=== PATIENT | female | born 1995 | race African-American/Black ===

== ENCOUNTER 2021-02-19 12:57 | Inpatient (IN) | payer MEDICAID ==
[~2021-02-19] VITALS: Ht 160 cm; Wt 65.3 kg
[2021-02-19] MEDS ORDERED: ACETAMINOPHEN 325MG TABLET PO STA (13:19)
[2021-02-19] MEDS ORDERED: SODIUM CHLORIDE 0.9% 1,000 ML IV ONE ×2 (13:30→16:45)
[2021-02-19 14:11] LABS: BASOPHILS % 0.2 % (0.0-2.0); EOSINOPHILS % 0.1 % (0.0-5.0); HEMATOCRIT. 26.4 % (36.0-48.0); HEMOGLOBIN. 8.6 g/dL (12.0-16.0); LYMPHOCYTES % 7.4 % (20.0-50.0); MEAN CORPUSCULAR HEMOGLOBIN 19.3 pg (28.0-32.0); MEAN CORPUSCULAR VOLUME 59.4 fL (81.0-99.0); MEAN PLATELET VOLUME 8.5 fl (7.4-10.4); NEUTROPHILS % 89.3 % (40.0-76.0); PLATELET 356 x1000/uL (130-400); RED BLOOD CELL COUNT 4.44 mill/uL (4.2-5.4); RED CELL DISTRIBUTION WIDTH 18.7 % (11.6-14.6)
[2021-02-19 14:19] LABS: CHLORIDE 107 mEq/L (98-107)
[2021-02-19 14:42] LABS: B-HCG QUANTITATIVE 22300 mIU/mL (<3)
[2021-02-19 14:55] LABS: PLATELET ESTIMATE NORMAL
[2021-02-19 15:45] LABS: CLARITY URINE CLOUDY (CLEAR); COLOR URINE RED (YELLOW); KETONES URINE TRACE (NEGATIVE); LEUKOCYTE ESTERASE URINE 1+ (NEGATIVE); NITRITE URINE NEGATIVE (NEGATIVE); OCCULT BLOOD URINE 3+ (NEGATIVE); PH URINE 5.5 (4.5-8.0); PROTEIN URINE 3+ (NEGATIVE); SPECIFIC GRAVITY URINE 1.034 (1.005-1.030); UROBILINOGEN URINE 0.2 E.U./dL (0.2-1.0)
[2021-02-19] MEDS ORDERED: ALBUMIN HUMAN 12.5G/250ML (5%) IV ONE (15:57)
[2021-02-19] MEDS ORDERED: LIDOCAINE HCL 1% 20ML VIAL (Pyxis) INJ ONE (16:08)
[2021-02-19] MEDS ORDERED: EPINEPHRINE 1:1000 1 MG/ML AMP ONE (16:08)
[2021-02-19] MEDS ORDERED: SODIUM CHLORIDE 0.9% 10ML VIAL ONE (16:16)
[2021-02-19] MEDS ORDERED: PHENYLEPHRINE HCL 10 MG/ML 1ML (IV VIAL) IV ONE (16:16)
[2021-02-19] MEDS ORDERED: MIDAZOLAM HCL 2 MG/2 ML VIAL ONE (16:16)
[2021-02-19] MEDS ORDERED: NEOSTIGMINE METHYLSULFATE 1MG/ML 10 ML VIAL ONE (16:16)
[2021-02-19] MEDS ORDERED: GLYCOPYRROLATE 0.2 MG/ML 2ML VIAL ONE (16:16)
[2021-02-19] MEDS ORDERED: FENTANYL CITRATE/PF 50MCG/ML 2ML VIAL ONE (16:16)
[2021-02-19] MEDS ORDERED: PROPOFOL 200MG/20ML VIAL IV ONE (16:16)
[2021-02-19] MEDS ORDERED: SUCCINYLCHOLINE CHLORIDE 200MG/10ML IV ONE (16:16)
[2021-02-19] MEDS ORDERED: ROCURONIUM BROMIDE 10MG/ML VIAL 5ML IV ONE (16:16)
[2021-02-19] MEDS ORDERED: METRONIDAZOLE 500 MG PREMIX 100 ML IV ONE (16:17)
[2021-02-19] MEDS ORDERED: EPHEDRINE SULFATE 50MG/ML VIAL ONE (16:17)
[2021-02-19] MEDS ORDERED: METOCLOPRAMIDE HCL 10MG/2ML VIAL ONE (16:17)
[2021-02-19] MEDS ORDERED: ONDANSETRON HCL 4MG/2ML INJ ONE (16:17)
[2021-02-19] MEDS ORDERED: ACETAMINOPHEN WITH CODEINE 300/30MG TABLET PO PRN (16:30)
[2021-02-19] MEDS ORDERED: IBUPROFEN 400MG TABLET PO PRN (16:30)
[2021-02-19] MEDS ORDERED: DIPHENHYDRAMINE 25MG CAPSULE PO PRN (16:30)
[2021-02-19] MEDS ORDERED: HYDROMORPHONE HCL/PF 2MG/ML CPJ IV PRN (16:45)
[2021-02-19] MEDS ORDERED: METHYLERGONOVINE MALEATE 0.2 MG/ML IM NR (16:45)
[2021-02-19] MEDS ORDERED: MEPERIDINE HCL/PF 25MG/ML CPJ IV PRN ×2 (16:45)
[2021-02-19] MEDS ORDERED: MORPHINE SULFATE 2 MG/ML CPJ (NOT FOR IM USE) IV PRN (16:45)
[2021-02-19] MEDS ORDERED: ONDANSETRON HCL 4MG/2ML INJ IV PRN (16:45)
[2021-02-19] MEDS ORDERED: DEXT 5%/LR + PITOCIN 20UNITS/L 1,000 ML IV SCH (17:00)
[2021-02-19 19:09] LABS: HEMATOCRIT 26.5 % (36.0-48.0); HEMOGLOBIN 8.7 g/dL (12.0-16.0); MEAN CORPUSCULAR HEMOGLOBIN 22.7 pg (28.0-32.0); MEAN CORPUSCULAR VOLUME 69.1 fL (81.0-99.0); PLATELET 217 x1000/uL (130-400); RED BLOOD CELL COUNT 3.83 mill/uL (4.2-5.4); RED CELL DISTRIBUTION WIDTH 29.6 % (11.6-14.6)
[2021-02-19 19:17] LABS: CHLORIDE 113 mEq/L (98-107)
[2021-02-19 20:00] VITALS: BP 112/70
[2021-02-19 20:55] VITALS: BP 112/70
[2021-02-19] MEDS: METHYLERGONOVINE MALEATE 0.2MG TABLET PO SCH (23:55)
[2021-02-19] MEDS: IBUPROFEN 800MG TABLET PO PRN (23:56)
[2021-02-20] VITALS: BP 110/65
[2021-02-20 00:48] LABS: HEMATOCRIT. 24.7 % (36.0-48.0); HEMOGLOBIN. 8.2 g/dL (12.0-16.0); MEAN CORPUSCULAR HEMOGLOBIN 22.6 pg (28.0-32.0); MEAN CORPUSCULAR VOLUME 68.1 fL (81.0-99.0); MEAN PLATELET VOLUME 8.8 fl (7.4-10.4); PLATELET 223 x1000/uL (130-400); RED BLOOD CELL COUNT 3.63 mill/uL (4.2-5.4); RED CELL DISTRIBUTION WIDTH 29.1 % (11.6-14.6)
[2021-02-20] MEDS ORDERED: POTASSIUM CHLORIDE 20MEQ TABLET SR PO NR (02:00)
[2021-02-20] MEDS ORDERED: DOLU50TA MT (03:54)
[2021-02-20] MEDS ORDERED: EMTR1TAB12 MT (03:54)
[2021-02-20 04:00] VITALS: BP 111/64
[2021-02-20 05:38] LABS: PLATELET ESTIMATE NORMAL
[2021-02-20 07:11] LABS: BASOPHILS % 0.1 % (0.0-2.0); EOSINOPHILS % 0.1 % (0.0-5.0); HEMATOCRIT. 21.2 % (36.0-48.0); HEMOGLOBIN. 7.2 g/dL (12.0-16.0); MEAN CORPUSCULAR HEMOGLOBIN 23.1 pg (28.0-32.0); MEAN CORPUSCULAR VOLUME 67.8 fL (81.0-99.0); MEAN PLATELET VOLUME 8.5 fl (7.4-10.4); MONOCYTES % 4.6 % (2.0-8.0); NEUTROPHILS % 87.2 % (40.0-76.0); PLATELET 183 x1000/uL (130-400); RED BLOOD CELL COUNT 3.13 mill/uL (4.2-5.4); RED CELL DISTRIBUTION WIDTH 28.6 % (11.6-14.6)
[2021-02-20] MEDS ORDERED: METH PO (07:26)
[2021-02-20] MEDS ORDERED: FERR325T23 PO (07:26)
[2021-02-20] MEDS ORDERED: ESTR-21 PO (07:26)
[2021-02-20] MEDS ORDERED: VIT1TABL PO (07:26)
[2021-02-20] MEDS ORDERED: IBUP-2030 PO (07:26)
[2021-02-20] MEDS ORDERED: METR375C2 MT (07:29)
[2021-02-20] MEDS ORDERED: FERROUS SULFATE 325MG TABLET PO SCH (07:50)
[2021-02-20 08:00] VITALS: BP 108/65
[2021-02-20] MEDS: IBUPROFEN 800MG TABLET PO PRN (08:52)
[2021-02-20] MEDS ORDERED: PRENATAL VIT/FE FUMARATE/FA TABLET PO SCH (09:00)
[2021-02-20] MEDS: METHYLERGONOVINE MALEATE 0.2MG TABLET PO SCH (09:00)
[2021-02-20 09:18] VITALS: BP 108/65
[2021-02-20 12:00] VITALS: BP 101/53
== END 2021-02-20 12:37 | disposition home or self-care (01) | DRG 546 ==
LOC: ER 12:57 → OR 15:01 → ENRESERV 17:55 → 6EST 20:00
PROVIDERS: ADMIT Specialist; ATTEND Specialist
PROC: 10D27ZZ Extraction of Products of Conception, Ectopic, Via Natural or Artificial Opening (ICD-10-PCS; principal; 2021-02-19)
PROC: 30233N1 Transfusion of Nonautologous Red Blood Cells into Peripheral Vein, Percutaneous Approach (ICD-10-PCS; 2021-02-19)
DX: O03.4 Incomplete spontaneous abortion without complication (principal); O98.711 Human immunodeficiency virus [HIV] disease complicating pregnancy, first trimester; D64.9 Anemia, unspecified; Z20.822 Contact with and (suspected) exposure to COVID-19; O99.011 Anemia complicating pregnancy, first trimester; Z3A.08 8 weeks gestation of pregnancy; Z21 Asymptomatic human immunodeficiency virus [HIV] infection status
CPT/HCPCS: 36415; 76830; 76856; 80048; 80053; 81003; 84702; 85025; 85027; 86850; 86900; 86920; 87426; 88305; 99285; J0330; J2250; J2370; J2405; J2590; J2704; J2710; J2765; J3010; J3490; J7030; J7040; P9016; P9041